=== PATIENT | male | born 1985 | race Hispanic/Latino ===

== ENCOUNTER 2019-09-08 14:32 | Emergency (ER) | payer SELFPAY ==
[2019-09-08 15:36] VITALS: BP 137/79
[2019-09-08] MEDS ORDERED: HYDROcodone/ACETAMINOPHEN 5-325 MG TAB PO ONE (15:40)
--- NOTE | 2019-09-08 15:42 | Emergency Department Report ---
Chief Complaint: Urogenital-Male Stated Complaint: GROIN PAIN Time Seen by Provider: 09/08/19 15:38 - HPI History of Present Illness: 33 y/o m p/w a cc of left flank and groin/testicle pain x 3 weeks. Occ nausea, no vomiting. Pt states he has difficulty urinating lately. Pt denies hematuria or dysuria. No fever - Exam Vital Signs: Vital Signs 09/08/19 15:35 Temperature 98.7 F Pulse Rate 96 H Respiratory 16 Rate Blood Pressure 137/79 [Left] O2 Sat by Pulse 97 Oximetry MSE screening note: Focused history and physical exam performed. Due to findings the following was ordered: cbc, cmp, ua, testicular u/s ct abd ED Disposition for MSE Condition: Stable
[2019-09-08 16:00] LABS: Basophils # (Auto) 0.1 K/mm3 (0.0-0.1); Basophils % (Auto) 0.5 % (0.0-1.8); Eosinophils # (Auto) 0.2 K/mm3 (0.0-0.4); Eosinophils % (Auto) 1.5 % (0.0-4.3); Hemoglobin 15.7 gm/dl (11.8-15.2); Lymphocytes # (Auto) 2.3 K/mm3 (1.2-5.4); Mean Corpuscular HGB Conc 35 % (32-34); Mean Corpuscular Volume 95 fl (84-94); Monocytes # (Auto) 1.9 K/mm3 (0.0-0.8); Monocytes % (Auto) 15.4 % (0.0-7.3); Platelet Count 303 K/mm3 (140-440); Red Blood Count 4.76 M/mm3 (3.65-5.03); Red Cell Distribution Width 12.9 % (13.2-15.2)
[2019-09-08 16:13] LABS: Bilirubin,Urine NEG (Negative); Blood,Urine MOD (Negative); Color,Urine Yellow (Yellow); Mucus,Urine FEW /HPF; Protein,Urine <15 mg/dL mg/dL (Negative); Urobilinogen,Urine < 2.0 mg/dL (<2.0)
[2019-09-08 16:24] LABS: Alanine Aminotransferase 34 units/L (7-56); Albumin 4.7 g/dL (3.9-5); BUN/Creatinine Ratio 12; Blood Urea Nitrogen 11 mg/dL (9-20); Calcium 9.6 mg/dL (8.4-10.2); Hemolysis Index 11
--- NOTE | 2019-09-08 17:19 | Cat Scan Report ---
CT ABDOMEN AND PELVIS WITHOUT CONTRAST INDICATION / CLINICAL INFORMATION: left flank and groin pain. Symptoms for 3 days. TECHNIQUE: Axial CT images were obtained through the abdomen and pelvis without IV contrast. All CT scans at [facility] location are performed using CT dose reduction for ALARA by means of automated exposure control. COMPARISON: None available. FINDINGS: LOWER CHEST: No significant abnormality. LIVER: No significant abnormality. GALLBLADDER: No significant abnormality. BILE DUCTS: No significant abnormality. PANCREAS: No significant abnormality. SPLEEN: No significant abnormality. ADRENALS: No significant abnormality. RIGHT KIDNEY and URETER: No significant abnormality. LEFT KIDNEY and URETER: No significant abnormality. STOMACH and SMALL BOWEL: Moderate amount of food material in the stomach. No dilated small bowel. COLON: No significant abnormality. APPENDIX: No significant abnormality. PERITONEUM: No free fluid. No free air. No fluid collection. LYMPH NODES: No significant adenopathy. AORTA and ARTERIES: No significant abnormality. IVC and VEINS: No significant abnormality. URINARY BLADDER: No significant abnormality. REPRODUCTIVE ORGANS: Hypodense area in the anterior median lobe of the prostate gland. ADDITIONAL FINDINGS: None. SKELETAL SYSTEM: No significant abnormality. IMPRESSION: 1. No definite inflammatory process or bowel obstruction. 2. No urinary tract stones or hydronephrosis. 3. Small hypodense area in the anterior median lobe of the prostate gland. Clinical and laboratory co rrelation for possible prostatitis is recommended. Signer Name: Hussain Victor MD Signed: 09/08/2019 5:15 PM Workstation Name: [email or web address]
--- NOTE | 2019-09-08 17:53 | Ultrasound Report ---
ULTRASOUND SCROTUM INDICATION / CLINICAL INFORMATION: left groin/testicle pain. COMPARISON: CT from same date FINDINGS -- RIGHT TESTIS: Size = 3.4 x 1.6 x 2.6 cm. - Appearance: No significant abnormality. - Cyst or Mass: None. - Color Doppler Flow: No significant abnormality. EPIDIDYMIS: Small cyst in the head of the epididymis measuring 7 mm. HYDROCELE: Small VARICOCELE: None demonstrated. FINDINGS -- LEFT TESTIS: Size = 3.7 x 1.8 x 2.2 cm. - Appearance: Several small areas of microlithiasis. - Cyst or Mass: None. - Color Doppler Flow: No significant abnormality. EPIDIDYMIS: Small cyst in the head of the epididymis measuring 3 mm. HYDROCELE: None. VARICOCELE: None demonstrated. ADDITIONAL FINDINGS: None. IMPRESSION: 1. Small right hydrocele. 2. 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 In the absence of any other risk factors for testicular cancer (e.g., personal history of testicular cancer, a father or brother with testicular cancer, history of cryptorchidism or maldescent, testicul ar atrophy, or other risk factors), no further imaging or biochemical follow-up is necessary; all jean pierre t is recommended is routine monthly testicular self-examination. However, if the patient has risk factors for testicular cancer, referral to a urologist for evaluatio n and determination of an optimal follow-up strategy is recommended. REFERENCE: Testicular Microlithiasis: What Should You Recommend Brent Grier, Lisa Harrison, Joel jones, and Joel Brink. [place] [employer] Roentgenology 2016 206:6, [id number] Signer Name: Hussain Victor MD Signed: 09/08/2019 5:48 PM Workstation Name: [email or web address]
--- NOTE | 2019-09-08 20:04 | Emergency Department Report ---
ED General Adult HPI - General Chief complaint: Urogenital-Male Stated complaint: GROIN PAIN Time Seen by Provider: 09/08/19 15:38 Source: patient Mode of arrival: Ambulatory Limitations: No Limitations - History of Present Illness Initial comments: 33 y.o. male with no PMHx presents with complaint of left inguinal pain for the past three days. Patient denies vomiting. Patient complains of nausea. Patient denies trauma to abdominal or scrotal region. Patient denies any fever. Patient has had no prior episodes of similar pain but does have a history of testicular cysts in the past. - Related Data Previous Rx's Medication Instructions Recorded Last Taken Type HYDROcodone/APAP 5-325 [[place] 1 each PO Q6HR PRN #20 tablet 09/08/19 Unknown Rx 5/325] Allergies Allergy/AdvReac Type Severity Reaction Status Date / Time No Known Allergies Allergy Unverified 09/08/19 14:36 ED Review of Systems ROS: Stated complaint: GROIN PAIN Other details as noted in HPI Constitutional: denies: chills, fever Eyes: denies: eye pain, eye discharge, vision change ENT: denies: ear pain, throat pain Respiratory: denies: cough, shortness of breath, wheezing Cardiovascular: denies: chest pain, palpitations Endocrine: no symptoms reported Gastrointestinal: abdominal pain, nausea. denies: vomiting Genitourinary: testicular pain Musculoskeletal: denies: back pain, joint swelling, arthralgia Skin: denies: rash, lesions Neurological: denies: headache, weakness, paresthesias Psychiatric: denies: anxiety, depression Hematological/Lymphatic: denies: easy bleeding, easy bruising ED Past Medical Hx - Past Medical History Previous Medical History?: Yes Additional medical history: testicular cysts - Surgical History Past Surgical History?: Yes Hx Appendectomy: Yes - Social History Smoking Status: Never Smoker Substance Use Type: None - Medications Home Medications: Home Medications Medication Instructions Recorded Confirmed Last Taken Type HYDROcodone/APAP 5-325 [[place] 1 each PO Q6HR PRN #20 tablet 09/08/19 Unknown Rx 5/325] ED Physical Exam - General Limitations: No Limitations General appearance: alert, in no apparent distress - Head Head exam: Present: atraumatic, normocephalic - Eye Eye exam: Present: normal appearance - ENT ENT exam: Present: mucous membranes moist - Neck Neck exam: Present: normal inspection - Respiratory Respiratory exam: Present: normal lung sounds bilaterally. Absent: respiratory distress - Cardiovascular Cardiovascular Exam: Present: regular rate, normal rhythm. Absent: systolic murmur, diastolic murmur, rubs, gallop - GI/Abdominal GI/Abdominal exam: Present: soft, tenderness (mild tenderness noted in the left inguinal region with no evidence of hernia.), normal bowel sounds. Absent: hernia - Rectal Rectal exam: Present: deferred - exam: Present: testicular tenderness (mild testicular tenderness) External exam: Absent: erythema - Extremities Exam Extremities exam: Present: normal inspection - Back Exam Back exam: Present: normal inspection - Neurological Exam Neurological exam: Present: alert, oriented X3 - Psychiatric Psychiatric exam: Present: normal affect, normal mood - Skin Skin exam: Present: warm, dry, intact, normal color. Absent: rash ED Course Vital Signs 09/08/19 15:35 Temperature 98.7 F Pulse Rate 96 H Respiratory 16 Rate Blood Pressure 137/79 [Left] O2 Sat by Pulse 97 Oximetry ED Medical Decision Making - Lab Data Result diagrams: 09/08/19 15:46 09/08/19 15:46 - Medical Decision Making Patient US shows the presence of hydrocele with no torsion. Patient CT shows no acute pathology and urinalysis is within normal limits. Patient to be discharged to follow up with PCP and urology. Critical care attestation.: If time is entered above; I have spent that time in minutes in the direct care of this critically ill patient, excluding procedure time. ED Disposition Clinical Impression: Abdominal pain, Hydrocele Disposition: - TO HOME OR SELFCARE Is pt being admited?: No Does the pt Need Aspirin: No Condition: Stable Instructions: Hydrocele (ED), Acute Abdominal Pain (ED) Prescriptions: HYDROcodone/APAP 5-325 [[place] 5/325] 1 each PO Q6HR PRN #20 tablet PRN Reason: Pain Referrals: KOJO SCANLON MD [Staff Physician] - 3-5 Days Time of Disposition: 20:03 Print Language: PRYDEINIG
[2019-09-08] MEDS ORDERED: HYDROcodone/ACETAMINOPHEN 5-325 MG TAB ONE (20:11)
== END 2019-09-08 20:12 | disposition home or self-care (01) ==
LOC: ED 14:32
DX: N43.3 Hydrocele, unspecified (principal); Z79.899 Other long term (current) drug therapy
CPT/HCPCS: 36415; 74176; 80053; 81001; 85025; 87086; 93975; 99284

== ENCOUNTER 2020-05-07 14:30 | Emergency (ER) | payer SELFPAY ==
--- NOTE | 2020-05-07 16:00 | XRay Report ---
CHEST 2 VIEWS INDICATION / CLINICAL INFORMATION: Chest Pain. COMPARISON: None available. FINDINGS: SUPPORT DEVICES: None. HEART / MEDIASTINUM: No significant abnormality. LUNGS / PLEURA: No significant pulmonary or pleural abnormality. No pneumothorax. ADDITIONAL FINDINGS: No significant additional findings. IMPRESSION: 1. No acute findings. Signer Name: Prabhjot Haider MD Signed: 05/07/2020 3:56 PM Workstation Name: [id number]
[2020-05-07 16:01] LABS: Basophils # (Auto) 0.1 K/mm3 (0.0-0.1); Basophils % (Auto) 0.7 % (0.0-1.8); Eosinophils # (Auto) 0.2 K/mm3 (0.0-0.4); Eosinophils % (Auto) 2.4 % (0.0-4.3); Hematocrit 44.7 % (35.5-45.6); Hemoglobin 15.4 gm/dl (11.8-15.2); Lymphocytes # (Auto) 2.4 K/mm3 (1.2-5.4); Lymphocytes % (Auto) 29.2 % (13.4-35.0); Mean Corpuscular HGB Conc 35 % (32-34); Mean Corpuscular Volume 95 fl (84-94); Monocytes # (Auto) 0.9 K/mm3 (0.0-0.8); Platelet Count 290 K/mm3 (140-440); Red Blood Count 4.72 M/mm3 (3.65-5.03); Red Cell Distribution Width 13.2 % (13.2-15.2)
[2020-05-07 16:22] LABS: BUN/Creatinine Ratio 16; Blood Urea Nitrogen 13 mg/dL (9-20); Calcium 9.4 mg/dL (8.4-10.2); Hemolysis Index 19
--- NOTE | 2020-05-07 18:50 | Emergency Department Report ---
ED Chest Pain HPI - General Chief Complaint: Chest Pain Stated Complaint: HEART BEATING FAST Time Seen by Provider: 05/07/20 17:27 Source: patient Mode of arrival: Ambulatory Limitations: No Limitations - History of Present Illness Initial Comments: 34-year-old male patient presents with complaints of intermittent heart racing and dizziness x3 months worsening x2 days. He reports the episodes typically last 5 to 10 minutes and occur with exertion and rest, however yesterday the episodes became more frequent. Patient states he did see his PCP for this and had an EKG done that showed an unknown abnormality and was instructed to follow-up with cardiology. Patient states he is still waiting for his appointment with cardiology. He denies any previous abnormal heart history, CVA/DVT/PE, leg pain/swelling, shortness of breath, cough, drug use, or family history of heart disease. No current racing heart per patient or chest pain. He states when the palpitations occur he does feel tightness in his chest. He denies any syncopal episodes. - Related Data Previous Rx's Medication Instructions Recorded Last Taken Type HYDROcodone/APAP 5-325 [[place] 1 each PO Q6HR PRN #20 tablet 09/08/19 Unknown Rx 5/325] Acetaminophen/Codeine [Tylenol 1 tab PO Q8H PRN #6 tab 05/07/20 Unknown Rx /Codeine # 3 tab] Clindamycin [Clindamycin CAP] 300 mg PO Q6H 7 Days #28 cap 05/07/20 Unknown Rx Allergies Allergy/AdvReac Type Severity Reaction Status Date / Time No Known Allergies Allergy Verified 09/08/19 20:16 Heart Score - HEART Score History: Slightly suspicious EKG: Normal Age: < 45 Risk factors: No known risk factors Troponin: < normal limit HEART Score: 0 ED Review of Systems ROS: Stated complaint: HEART BEATING FAST Other details as noted in HPI ED Past Medical Hx - Past Medical History Previous Medical History?: No Additional medical history: testicular cysts - Surgical History Past Surgical History?: Yes Hx Appendectomy: Yes - Social History Smoking Status: Never Smoker - Medications Home Medications: Home Medications Medication Instructions Recorded Confirmed Last Taken Type HYDROcodone/APAP 5-325 [[place] 1 each PO Q6HR PRN #20 tablet 09/08/19 Unknown Rx 5/325] Acetaminophen/Codeine [Tylenol 1 tab PO Q8H PRN #6 tab 05/07/20 Unknown Rx /Codeine # 3 tab] Clindamycin [Clindamycin CAP] 300 mg PO Q6H 7 Days #28 cap 05/07/20 Unknown Rx ED Physical Exam - General Limitations: No Limitations - Head Head exam: Present: atraumatic, normocephalic - Eye Eye exam: Present: normal appearance. Absent: scleral icterus - ENT ENT exam: Present: mucous membranes moist - Expanded ENT Exam Expanded Mouth exam: Absent: drooling, trismus, muffled voice Teeth exam: Present: dental tenderness # (Tooth #1 with overlying facial tenderness; no swelling noted; mild erythema noted of the gum surrounding tooth number) - Neck Neck exam: Present: normal inspection, full ROM. Absent: lymphadenopathy - Respiratory Respiratory exam: Present: normal lung sounds bilaterally. Absent: respiratory distress, chest wall tenderness - Cardiovascular Cardiovascular Exam: Present: regular rate, normal rhythm. Absent: systolic murmur, diastolic murmur, rubs, gallop - GI/Abdominal GI/Abdominal exam: Present: soft. Absent: tenderness - Extremities Exam Extremities exam: Present: normal inspection. Absent: calf tenderness (34-year-old -Luxembourger female patient presents with complaints of left vaginal pain and swelling x today. 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 She reports that she has seen an [employer] for this complaint in the past and they stated that she may have to have her gland removed. She denies any fever/chills/sweats, vaginal bleeding, or abdominal pain. She rates her current pain as a 10/10 in severity. Or tenderness to palpation noted of lower legs bilaterally) - Back Exam Back exam: Present: full ROM - Neurological Exam Neurological exam: Present: alert, oriented X3, normal gait - Psychiatric Psychiatric exam: Present: normal affect, normal mood - Skin Skin exam: Present: warm, dry, intact, normal color. Absent: rash ED Course Vital Signs 05/07/20 15:22 Temperature 98.6 F Pulse Rate 75 Respiratory 18 Rate Blood Pressure 114/73 O2 Sat by Pulse 96 Oximetry ED Medical Decision Making - Lab Data Result diagrams: 05/07/20 15:39 05/07/20 15:39 Lab Results 05/07/20 05/07/20 05/07/20 Range/Units 15:39 15:39 18:31 WBC 8.2 (4.5-11.0) K/mm3 RBC 4.72 (3.65-5.03) M/mm3 Hgb 15.4 H (11.8-15.2) gm/dl Hct 44.7 (35.5-45.6) % MCV 95 H (84-94) fl MCH 33 H (28-32) pg MCHC 35 H (32-34) % RDW 13.2 (13.2-15.2) % Plt Count 290 (140-440) K/mm3 Lymph % (Auto) 29.2 (13.4-35.0) % [place] % (Auto) 11.0 H (0.0-7.3) % Eos % (Auto) 2.4 (0.0-4.3) % Baso % (Auto) 0.7 (0.0-1.8) % Lymph # (Auto) 2.4 (1.2-5.4) K/mm3 [place] # (Auto) 0.9 H (0.0-0.8) K/mm3 Eos # (Auto) 0.2 (0.0-0.4) K/mm3 Baso # (Auto) 0.1 (0.0-0.1) K/mm3 Seg Neutrophils % 56.7 (40.0-70.0) % Seg Neutrophils # 4.6 (1.8-7.7) K/mm3 Sodium 139 (137-145) mmol/L Potassium 4.4 (3.6-5.0) mmol/L Chloride 101.0 (98-107) mmol/L Carbon Dioxide 23 (22-30) mmol/L Anion Gap 19 mmol/L BUN 13 (9-20) mg/dL Creatinine 0.8 (0.8-1.3) mg/dL Estimated GFR > 60 ml/min BUN/Creatinine Ratio 16 % Glucose 86 (75-100) mg/dL Calcium 9.4 (8.4-10.2) mg/dL Magnesium (1.7-2.3) mg/dL Total Bilirubin (0.1-1.2) mg/dL Direct Bilirubin (0-0.2) mg/dL Indirect Bilirubin mg/dL AST (5-40) units/L ALT (7-56) units/L Alkaline Phosphatase (35-129) units/L Troponin T < 0.010 < 0.010 (0.00-0.029) ng/mL Total Protein (6.3-8.2) g/dL Albumin (3.9-5) g/dL Albumin/Globulin Ratio % TSH (0.270-4.200) mlU/mL 05/07/20 05/07/20 05/07/20 Range/Units 18:31 18:53 18:53 WBC (4.5-11.0) K/mm3 RBC (3.65-5.03) M/mm3 Hgb (11.8-15.2) gm/dl Hct (35.5-45.6) % MCV (84-94) fl MCH (28-32) pg MCHC (32-34) % RDW (13.2-15.2) % Plt Count (140-440) K/mm3 Lymph % (Auto) (13.4-35.0) % [place] % (Auto) (0.0-7.3) % Eos % (Auto) (0.0-4.3) % Baso % (Auto) (0.0-1.8) % Lymph # (Auto) (1.2-5.4) K/mm3 [place] # (Auto) (0.0-0.8) K/mm3 Eos # (Auto) (0.0-0.4) K/mm3 Baso # (Auto) (0.0-0.1) K/mm3 Seg Neutrophils % (40.0-70.0) % Seg Neutrophils # (1.8-7.7) K/mm3 Sodium (137-145) mmol/L Potassium (3.6-5.0) mmol/L Chloride (98-107) mmol/L Carbon Dioxide (22-30) mmol/L Anion Gap mmol/L BUN (9-20) mg/dL Creatinine (0.8-1.3) mg/dL Estimated GFR ml/min BUN/Creatinine Ratio % Glucose (75-100) mg/dL Calcium (8.4-10.2) mg/dL Magnesium 2.20 (1.7-2.3) mg/dL Total Bilirubin 0.20 (0.1-1.2) mg/dL Direct Bilirubin < 0.2 (0-0.2) mg/dL Indirect Bilirubin 0.0 mg/dL AST 21 (5-40) units/L ALT 27 (7-56) units/L Alkaline Phosphatase 68 (35-129) units/L Troponin T (0.00-0.029) ng/mL Total Protein 8.0 (6.3-8.2) g/dL Albumin 5.1 H (3.9-5) g/dL Albumin/Globulin Ratio 1.8 % TSH 1.420 (0.270-4.200) mlU/mL - EKG Data EKG shows normal: sinus rhythm Rate: normal - EKG Data Interpretation: normal EKG - Radiology Data Radiology results: report reviewed CHEST 2 VIEWS INDICATION / CLINICAL INFORMATION: Chest Pain. COMPARISON: None available. FINDINGS: SUPPORT DEVICES: None. HEART / MEDIASTINUM: No significant abnormality. LUNGS / PLEURA: No significant pulmonary or pleural abnormality. No pneum othorax. ADDITIONAL FINDINGS: No significant additional findings. IMPRESSION: 1. No acute findings. - Medical Decision Making 34-year-old male patient presents with complaints of intermittent heart racing and dizziness x3 months worsening x2 days. He reports the episodes typically last 5 to 10 minutes and occur with exertion and rest, however yesterday the episodes became more frequent. Patient states he did see his PCP for this and had an EKG done that showed an unknown abnormality and was instructed to follow-up with cardiology. Patient states he is still waiting for his appointment with cardiology. He denies any previous abnormal heart history, CVA/DVT/PE, leg pain/swelling, shortness of breath, cough, drug use, or family history of heart disease. No current racing heart per patient or chest pain. He states when the palpitations occur he does feel tightness in his chest. He denies any syncopal episodes. Lung and heart exam are normal. Chest x-ray is normal. No acute abnormalities noted on CBC or CMP. TSH and magnesium are normal. Initial and 3-hour troponin are normal. EKG shows normal sinus rhythm. Heart score = 1. Patient continues to deny any current chest pain or palpitations. Recommend patient continue with follow-up with cardiology, new referral given. Also discussed need for Holter monitor and signs and symptoms that should prompt immediate return to the emergency department, patient verbalized understanding. Patient now complaining of right upper dental pain x3 weeks without facial swelling or fever/chills/sweats. States he is from [place] and unable to see his dentist at this time. Prescription for clindamycin given. Patient instructed to follow-up with a dental specialist within 3 days. Is well- appearing stable for discharge home Critical care attestation.: If time is entered above; I have spent that time in minutes in the direct care of this critically ill patient, excluding procedure time. ED Disposition Clinical Impression: Intermittent palpitations, Pain, dental Disposition: DC- TO HOME OR SELFCARE Is pt being admited?: No Condition: Stable Instructions: Palpitations (ED), Toothache (ED), Chest Pain (ED) Additional Instructions: Please follow up with cardiology or your primary care physician for further evaluation and possible Holter monitor within 2 days. Prescriptions: Clindamycin [Clindamycin CAP] 300 mg PO Q6H 7 Days #28 cap Acetaminophen/Codeine [Tylenol /Codeine # 3 tab] 1 tab PO Q8H PRN #6 tab PRN Reason: Pain , Severe (7-10) Referrals: ISELA MELÉNDEZ MD [Staff Physician] - 05/08/20
[2020-05-07 19:08] LABS: Alanine Aminotransferase 27 units/L (7-56); Albumin 5.1 g/dL (3.9-5)
[2020-05-07 19:14] LABS: Bilirubin,Direct < 0.2 mg/dL (0-0.2)
[2020-05-07 20:19] VITALS: BP 116/79
== END 2020-05-07 20:18 | disposition home or self-care (01) ==
LOC: ED 14:30
DX: R00.2 Palpitations (principal); K08.89 Other specified disorders of teeth and supporting structures
CPT/HCPCS: 36415; 71046; 80048; 80076; 83735; 84443; 84484; 85025; 93005

== ENCOUNTER 2020-06-08 15:40 | Emergency (ER) | payer SELFPAY ==
[2020-06-08 17:05] VITALS: BP 140/81
--- NOTE | 2020-06-08 17:40 | Emergency Department Report ---
ED General Adult HPI - General Chief complaint: Medical Clearance Stated complaint: EXPOSURE TO HIV PRODUCTS Time Seen by Provider: 06/08/20 17:25 Source: patient Mode of arrival: Ambulatory Limitations: No Limitations - History of Present Illness Initial comments: 34-year-old male presents emerged department complaining of possible HIV exposure as he was helping his friend who had passed out from a nosebleed trying to pick him up off the floor. When he got home he realized he has his friends blood on his lip which was chapped and he tasted blood and became worried. He tried to go to the clinic at [place] but states they were unable to see him until so he came to emergency department seeking PEP therapy reports no comorbidities no previous exposure history. Radiation: non-radiation - Related Data Previous Rx's Medication Instructions Recorded Last Taken Type HYDROcodone/APAP 5-325 [[place] 1 each PO Q6HR PRN #20 tablet 09/08/19 Unknown Rx 5/325] Acetaminophen/Codeine [Tylenol 1 tab PO Q8H PRN #6 tab 05/07/20 Unknown Rx /Codeine # 3 tab] Clindamycin [Clindamycin CAP] 300 mg PO Q6H 7 Days #28 cap 05/07/20 Unknown Rx Emtricitabine/Tenofovir (Tdf) 2 each PO DAILY #56 tablet 06/08/20 Unknown Rx [[place] 100 mg-150 mg Tablet] Allergies Allergy/AdvReac Type Severity Reaction Status Date / Time No Known Allergies Allergy Verified 09/08/19 20:16 ED Review of Systems ROS: Stated complaint: EXPOSURE TO HIV PRODUCTS Other details as noted in HPI Comment: All other systems reviewed and negative ED Past Medical Hx - Past Medical History Previous Medical History?: No Additional medical history: testicular cysts - Surgical History Past Surgical History?: Yes Hx Appendectomy: Yes - Social History Smoking Status: Never Smoker Substance Use Type: None - Medications Home Medications: Home Medications Medication Instructions Recorded Confirmed Last Taken Type HYDROcodone/APAP 5-325 [[place] 1 each PO Q6HR PRN #20 tablet 09/08/19 Unknown Rx 5/325] Acetaminophen/Codeine [Tylenol 1 tab PO Q8H PRN #6 tab 05/07/20 Unknown Rx /Codeine # 3 tab] Clindamycin [Clindamycin CAP] 300 mg PO Q6H 7 Days #28 cap 05/07/20 Unknown Rx Emtricitabine/Tenofovir (Tdf) 2 each PO DAILY #56 tablet 06/08/20 Unknown Rx [[place] 100 mg-150 mg Tablet] ED Physical Exam - General Limitations: No Limitations ED Course Vital Signs 06/08/20 17:03 Temperature 98 F Pulse Rate 81 Respiratory 18 Rate Blood Pressure 140/81 O2 Sat by Pulse 96 Oximetry Critical care attestation.: If time is entered above; I have spent that time in minutes in the direct care of this critically ill patient, excluding procedure time. 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
== END 2020-06-08 18:46 | disposition home or self-care (01) ==
LOC: ED 15:40
DX: Z20.6 Contact with and (suspected) exposure to human immunodeficiency virus [HIV] (principal)
CPT/HCPCS: 99281